=== PATIENT | male | born 1955 | race African-American/Black ===

== ENCOUNTER → 2016-10-01 | Outpatient (CLI) | payer OTHER ==
[~2016-10-01] MED LIST: AMLODIPINE BESYL5 MG PO; ANTIVERT50 MG PO; ASPIRIN EC81 M1 PO; ASPIRIN PO; ASPIRIN81 M1 PO; ATORVASTATIN CA10 MG PO; BENZONATATE PO; CELEBREX; CELEBREX PO; COLACE; CORICIDIN HBP F1 TAB PO; DOXYCYCLINE150 MG PO; FLEXERIL10 MG PO; IBUPROFEN600 MG PO; LISINOPRIL-HCTZ1 T15 PO; LISINOPRIL20 MG PO; LORTAB 5/500 TA1 TA1 PO; LOTENSIN HCT 201 TAB PO; MEDROL4 MG/DOSE- PO; MOTRIN600 M1 PO; PREDNISONE PO; TYLENOL COLD SE1 TAB PO; VICODIN 5/1 TAB 5/50 PO; ZYLOPRIM100 MG PO; [UNRECOGNIZED DRUG - REMARK]
--- NOTE | ~2016-10-01 | MR103 ---
[facility] A Service of [facility] & [facility] RADIOLOGY TEXT RESULTS PATIENT: ANMOL CIFUENTES LOCATION: [facility] : 55 UNIT #: [id number] AGE: [address]: PERI POND APRN SEX: M ORDER DR: [id number] [facility]. [place], [place] [address] [id number] O MR#: [id number] Acc #: [id number] NAME: ANMOL CIFUENTES : 1955 SEX: M STUDY DATE/TIME: 10/01/2016 7:15 UNIT: [facility] ROOM: STUDY DESCRIPTION: MR Knee Wo Contrast Lt Ordering Physician: Peri Moser M.D. MRI CENTER REPORT This report is preliminary unless electronic signature is present. EXAM Left knee MRI without contrast 10/01/2016 HISTORY 61-year-old male with left knee pain status post fall 07/19/2016. Anterior pain just above the patella. No prior left knee surgery. COMPARISON STUDIES Left knee and left femur x-rays 07/19/2016. TECHNIQUE Routine unenhanced multiplanar, multisequence high-field MR imaging of the left knee was performed. FINDINGS There is a longitudinal horizontal oblique undersurface tear of the body segment lateral meniscus. Medial meniscus is intact. Cruciate and collateral ligaments are intact. There is a suspected partial-thickness tear of the vastus medialis at the musculotendinous attachment of the quadriceps tendon complex. This is associated with a small soft tissue hematoma superior to the patella, along the anteromedial aspect of the knee. This measures approximately 4.7 x 1.9 x 3.2 cm in size. Majority of the quadriceps tendon remains intact. Patellofemoral joint appears normally located. Patellar tendon is intact. No joint effusion. No popliteal cyst. Low-grade chondromalacia lateral patellar facet. Femoral trochlea articular cartilage is intact. There is [id number] grade chondromalacia along the central weightbearing lateral tibial plateau with moderate-grade chondromalacia of the lateral femoral condyle. There is [id number] grade chondromalacia along the posterolateral [facility] A Service of [facility] & [facility] RADIOLOGY TEXT RESULTS PATIENT: ANMOL CIFUENTES LOCATION: [facility] : 55 UNIT #: [id number] AGE: [address]: PERI POND APRN SEX: M ORDER DR: weightbearing medial femoral condyle. Bone marrow signal is within expected limits. Visualized musculature is otherwise unremarkable. IMPRESSION 1. Partial-thickness tear involving the musculotendinous complex of the vastus medialis. This is associated with a small hematoma along the superior anteromedial aspect of the knee, just above the patella, measuring 4.7 x 1.9 x 3.2 cm. The majority of the quadriceps tendon remains intact. The patellofemoral joint is normally located. 2. Longitudinal horizontal oblique undersurface tear of the body segment lateral meniscus. 3. No acute ligament injury. 4. Low-grade chondromalacia of the patella. 5. Pctlbmwm-[id number] grade chondromalacia of the central weightbearing lateral tibial plateau and posterolateral aspect of the medial femoral condyle. Moderate-grade chondromalacia of the lateral femoral condyle. Dictated by... Kiko Godinez M.D. THIS IS AN ELECTRONICALLY VERIFIED REPORT Kiko Godinez M.D. at 10/02/2016 8:10 AM JSALOME/pcl TD: 10/01/2016 21:21 JOB #: [id number] MRI CENTER REPORT Page 1 of 1 COPY
== END | disposition home or self-care (01) ==
LOC: CMRI 06:37
DX: M25.562 Pain in left knee (principal); M23.201 Derangement of unspecified lateral meniscus due to old tear or injury, left knee; M22.42 Chondromalacia patellae, left knee
CPT/HCPCS: 73721